=== PATIENT | female | born 1980 | race American Indian/Alaskan Native ===

== ENCOUNTER 2024-11-24 11:00 | Emergency (ER) | payer BC, MEDICAID, OTHER ==
[2024-11-24 11:42] LABS: BASOPHILS PERCENT AUTO 0.9 % (0.0-1.0); EOSINOPHILS PERCENT AUTO 2.1 % (1.0-3.0); LYMPHOCYTES PERCENT AUTO 23.9 % (20.5-50.1); MONOCYTES PERCENT AUTO 7.1 % (2-8); NEUTROPHILS PERCENT AUTO 66.0 % (42.2-75.2); PLATELET COUNT,PLT 185 10^3/uL (150-450); RED BLOOD CELL COUNT 3.99 10^6/uL (4.2-5.4); WHITE BLOOD CELL COUNT,WBC 4.4 10^3/uL (5.0-10.0)
[2024-11-24 12:08] LABS: A/G RATIO 1.0; ALANINE AMINOTRANSFERASE,ALT 20 U/L (14-59); ASPARTATE AMNIOTRANSFERASE,AST 16 U/L (15-37); BILIRUBIN TOTAL 1.5 mg/dL (0.2-1.0); BLOOD UREA NITROGEN,BUN 12 mg/dL (7-18); CARBON DIOXIDE,CO2 26 mmol/L (21-32); CHLORIDE,CL 106 mmol/L (98-107); CREATININE 0.92 mg/dL (0.55-1.02); EST CRCL DRUG DOSING (CG) 61.07 mL/min; ESTIMATED GFR 78 mL/min (>=60); GLUCOSE RANDOM 99 mg/dL (70-99); POTASSIUM,K 4.0 mmol/L (3.5-5.1); PROTEIN TOTAL,TP 7.2 g/dL (6.4-8.2); SODIUM,NA 140 mmol/L (136-145)
== END 2024-11-24 13:09 | disposition home or self-care (01) ==
LOC: DL.ED 11:00
DX: J45.909 Unspecified asthma, uncomplicated (principal); F17.200 Nicotine dependence, unspecified, uncomplicated; Z88.0 Allergy status to penicillin; Z88.8 Allergy status to other drugs, medicaments and biological substances; Z79.890 Hormone replacement therapy; Z79.899 Other long term (current) drug therapy
CPT/HCPCS: 36415; 71045; 80053; 83735; 83880; 84484; 85025; 85379; 93005; 93010; 94640; 99283; 99285; J7620; A9270-GY

== ENCOUNTER 2025-04-11 06:09 | Day surgery (SDC) | payer BC, MEDICAID ==
[2025-04-11] MEDS ORDERED: Propofol 200 MG/20 ML SDV IV ONE (06:10)
[2025-04-11] MEDS ORDERED: Lactated Ringers 1,000 ML IV ONE (06:10)
[2025-04-11] MEDS: Lactated Ringers 1,000 ML IV SCH (06:45)
[2025-04-11] MEDS ORDERED: Propofol 200 MG/20 ML SDV ONE (07:17)
[2025-04-11] MEDS: Ondansetron 4 MG/2 ML SDV ONE (08:24)
[2025-04-11] MEDS: Ondansetron 4 MG/2 ML SDV IVPUSH PRN (08:26)
== END 2025-04-11 08:59 | disposition home or self-care (01) ==
LOC: DL.ENDO 06:09
PROVIDERS: ATTEND Internal Medicine Gastroenterology
DX: Z12.11 Encounter for screening for malignant neoplasm of colon (principal); E03.9 Hypothyroidism, unspecified; Z88.0 Allergy status to penicillin; Z79.890 Hormone replacement therapy; Z79.899 Other long term (current) drug therapy
CPT/HCPCS: 45378; J2405; J2704; J7120; S5010